=== PATIENT | female | born 1985 | race Hispanic/Latino ===

== ENCOUNTER 2019-06-02 13:15 | Outpatient (CLI) | payer BC ==
--- NOTE | 2019-06-02 14:02 | ULT ---
THYROID ULTRASOUND INDICATION: Thyroid mass TECHNIQUE: Grayscale and color Doppler images were obtained of the thyroid gland. COMPARISON: November 18, 2011 FINDINGS: Right thyroid lobe: The right thyroid lobe measures 4.9 x 1.3 x 1.8 cm. Thyroid isthmus: The thyroid isthmus measures 0.27 cm. Left thyroid lobe: The left thyroid lobe measures 5.2 x 1.5 x 1.5 cm. IMPRESSION: 1. No focal thyroid lesion demonstrated.
--- NOTE | 2019-06-02 15:43 | ULT ---
TRANSABDOMINAL PELVIC ULTRASOUND WITH DOPPLER 06/02/19 PROVIDED CLINICAL HISTORY: Pelvic pain. FINDINGS: Uterus measures about 9.4 x 4.6 x 3.2 cm and demonstrates a normal transabdominal sonographic appeara nce. Endometrial thickness is about 3 mm. The right and left ovaries demonstrate a normal transabdominal sonographic appearance. Color Doppler and spectral analysis of the ovarian waveforms demonstrates normal flow bilaterally. There is no evidence for significant free pelvic fluid. IMPRESSION: Unremarkable transabdominal pelvic ultrasound. POS: [facility]
== END 2019-06-02 13:16 | disposition home or self-care (01) ==
LOC: BICULT 13:15
PROVIDERS: ATTEND Internal Medicine
DX: E01.0 Iodine-deficiency related diffuse (endemic) goiter (principal); R10.2 Pelvic and perineal pain; R14.0 Abdominal distension (gaseous)
CPT/HCPCS: 76536; 76856; 93976

== ENCOUNTER 2019-06-08 07:14 | Outpatient (CLI) | payer BC ==
--- NOTE | 2019-06-08 09:59 | ULT ---
ABDOMINAL ULTRASOUND: HISTORY: Abdominal bloating. COMPARISON: None. TECHNIQUE: Utilizing a Multihertz transducer, sonographic imaging of the abdomen is performed in the longitudina l and transverse plane. FINDINGS: The head and proximal pancreatic parenchyma have a normal echotexture. The remainder of the pancreas is obscured by bowel gas. Visualized IVC and aorta are unremarkable. Hepatic parenchyma has a normal echotexture. No hepatic masses or intrahepatic biliary dilatation. The contour of the hepatic margin is maintained. Right hepatic lobe measures 13.4 cm. Common bile duct diameter is 0.3 cm. No sonographic evidence of cholelithiasis, gallbladder wall thickening, or pericholecystic fluid. Co mment is not made on the presence or absence of Schultz's sign. Both kidneys have a normal cortical echotexture. Bilaterally, no hydronephrosis. The right kidney m easures 9.9 x 5.0 x 5.2 cm. The left kidney measures 5.3 x 10.5 x 5.6 cm. The spleen has a normal echotexture measuring 9.4 cm. IMPRESSION: Unremarkable abdominal ultrasound. POS: [facility]
== END 2019-06-08 07:15 | disposition home or self-care (01) ==
LOC: BICULT 07:14
PROVIDERS: ATTEND Internal Medicine
DX: R14.0 Abdominal distension (gaseous) (principal); R10.2 Pelvic and perineal pain; E01.0 Iodine-deficiency related diffuse (endemic) goiter
CPT/HCPCS: 93975

== ENCOUNTER 2019-09-14 16:16 | Outpatient (CLI) | payer BC ==
--- NOTE | 2019-09-15 08:51 | RAD ---
LUMBAR SPINE 2 VIEWS: HISTORY: Back pain. FINDINGS: Vertebral bodies are normal in height. Disk spaces all appear relatively well-preserved. There appe ar to be some mild facet hypertrophic changes of the lower lumbar spine. Pedicles are intact. IMPRESSION: Essentially unremarkable lumbar spine series. Some minimal facet hypertrophic changes of the lower l umbar spine noted. POS: [facility]
--- NOTE | 2019-09-15 09:52 | RAD ---
THORACIC SPINE THREE VIEWS: History: Back pain. FINDINGS: The vertebral bodies are normal in height. Disc spaces appear fairly well preserved and pedicles are intact. Minimal osteophytic change is seen. IMPRESSION: Essentially unremarkable thoracic spine series. POS: [facility]
== END 2019-09-14 16:17 | disposition home or self-care (01) ==
LOC: BICRAD 16:16
PROVIDERS: ATTEND Internal Medicine
DX: M54.5 Low back pain (principal); M54.6 Pain in thoracic spine
CPT/HCPCS: 72072; 72100

== ENCOUNTER 2021-12-16 08:11 | Outpatient (CLI) | payer BC | END 2021-12-16 08:12 | disposition home or self-care (01) | LOC: BICRAD 08:11 | PROVIDERS: ATTEND Internal Medicine | DX: R76.12 Nonspecific reaction to cell mediated immunity measurement of gamma interferon antigen response without active tuberculosis (principal) | CPT/HCPCS: 71046 ==